=== PATIENT | male | born 1935 | race Asian ===

== ENCOUNTER 2018-07-25 10:47 | Emergency (ER) | payer OTHER ==
[~2018-07-25] VITALS: Ht 160 cm; Wt 68.0 kg
[2018-07-25 10:48] VITALS: Ht 160 cm; Wt 68.0 kg
[2018-07-25 11:27] LABS: PLATELET COUNT 175 x10^3mcL (130-400)
[2018-07-25 11:29] LABS: RED CELL DISTRIBUTION WIDTH 14.6 % (11.5-14.5)
[2018-07-25 11:35] LABS: CARBON DIOXIDE 29.9 mmol/L (21-32); CHLORIDE SERUM 103 mmol/L (98-107); CREATININE SERUM 1.6 mg/dL (0.7-1.3); GLUCOSE SERUM 155 mg/dL (74-106); POTASSIUM SERUM 3.9 mmol/L (3.5-5.1); SODIUM SERUM 139 mmol/L (136-145)
[2018-07-25 11:41] LABS: ALBUMIN 3.4 g/dL (3.4-5.0); ALKALINE PHOSPHATASE 99 U/L (46-116); ALT/SGPT 22 U/L (16-63); AST/SGOT 16 U/L (15-37); BILIRUBIN TOTAL 1.1 mg/dL (0.20-1.00); CHOLESTEROL 163 mg/dL (<200); CHOLESTEROL/HDL RATIO 4.1; HDL CHOLESTEROL 40 mg/dL (40-60); LIPASE 98 IU/L (73-393); TOTAL PROTEIN, SERUM 8.1 g/dL (6.4-8.2); TRIGLYCERIDES 140 mg/dL (<150)
[2018-07-25 11:53] LABS: FREE T4 1.01 ng/dL (0.76-1.46); FREE THYROXINE INDEX 2.7 ug/dL (1.4-4.5)
[2018-07-25 12:11] LABS: microscopic required? YES; urine erythrocyte 2+ (NEGATIVE)
[2018-07-25 12:50] LABS: T3 TOTAL 0.68 ng/mL
[2018-07-25 21:06] VITALS: BP 160/99
== END 2018-07-25 21:06 | disposition short-term general hospital (02) ==
LOC: ED 10:47
PROVIDERS: Specialist
DX: R07.89 Other chest pain (principal); I71.4 Abdominal aortic aneurysm, without rupture; I10 Essential (primary) hypertension
CPT/HCPCS: 36415; 83880; 84439; J7030; Q0092; Q9967